=== PATIENT | female | born 1995 | race Hispanic/Latino ===

== ENCOUNTER 2022-09-05 19:42 | Emergency (ER) | payer OTHER, SELFPAY ==
[2022-09-05] MEDS ORDERED: Acetaminophen 325 MG TAB ONE (20:33)
== END 2022-09-05 22:28 | disposition home or self-care (01) ==
LOC: CSHERS 19:42
DX: O9A.211 Injury, poisoning and certain other consequences of external causes complicating pregnancy, first trimester (principal); S00.03XA Contusion of scalp, initial encounter; Z3A.13 13 weeks gestation of pregnancy
CPT/HCPCS: 76815

== ENCOUNTER 2022-12-01 15:26 | Outpatient (CLI) | payer OTHER | END 2022-12-01 15:27 | disposition home or self-care (01) | LOC: CSHULT 15:26 | PROVIDERS: ATTEND Family Medicine | DX: O44.42 Low lying placenta NOS or without hemorrhage, second trimester (principal); Z3A.27 27 weeks gestation of pregnancy | CPT/HCPCS: 76805 ==

== ENCOUNTER 2023-03-07 11:41 | Inpatient (IN) | payer OTHER ==
[~2023-03-07 11:41] MED LIST: Bupivacaine 0.25% HCL 30 ML VIAL ONE
[2023-03-07] MEDS ORDERED: Misoprostol 100 MCG TAB ONE (12:41)
[2023-03-07] MEDS ORDERED: hydrALAZINE 20 MG/ML VIAL SLOW IVP PRN (12:51)
[2023-03-07] MEDS ORDERED: fentaNYL 50 mcg/mL 1 mL Vial SLOW IVP PRN (12:51)
[2023-03-07] MEDS ORDERED: Diphenoxylate HCl/Atropine Tablet PO PRN (12:51)
[2023-03-07] MEDS ORDERED: Acetaminophen 500 MG TAB PO PRN (12:51)
[2023-03-07] MEDS ORDERED: Misoprostol 200 MCG TAB PR PRN (12:51)
[2023-03-07] MEDS ORDERED: Lidocaine 1% (PF) 30 ML VIAL SC PRN (12:51)
[2023-03-07] MEDS ORDERED: HYDROcodone/Acetaminophen 5/325 mg Tablet PO PRN (12:51)
[2023-03-07] MEDS ORDERED: Ibuprofen 800 MG TAB PO PRN (12:51)
[2023-03-07] MEDS ORDERED: Ondansetron PF 4 MG/2 ML Vial IVP PRN (12:51)
[2023-03-07] MEDS ORDERED: Carboprost 250 MCG/ML AMP IM PRN (12:51)
[2023-03-07] MEDS ORDERED: Tranexamic Acid 1,000 MG/10 ML VIAL IVP PRN (12:51)
[2023-03-07] MEDS ORDERED: Methylergonovine 0.2 MG/ML VIAL IM PRN (12:51)
[2023-03-07] MEDS ORDERED: Promethazine HCl 25 MG/ML VIAL IM PRN (12:51)
[2023-03-07] MEDS ORDERED: NS w/ Oxytocin 30 units 500 ML IV SCH ×3 (13:00)
[2023-03-07 13:06] LABS: Hemoglobin 11.2 g/dL (12.0-15.5); Mean Corpuscular HGB CONC 35.3 g/dL (32.0-36.0); Mean Corpuscular Hemoglobin 28.4 pg (27.0-33.0); Mean Corpuscular Volume 80.3 fl (81.6-98.3); Mean Platelet Volume 10.5 fl (7.4-10.4); Platelet Count 239 10x3/uL (150-450); RBC Distribution Width 13.4 % (11.5-14.5); Red Blood Cell (RBC) Count 3.95 10x6/uL (3.90-5.03); White Blood Cell (WBC) Count 7.4 10x3/uL (3.5-10.5)
[2023-03-07 13:30] LABS: ALT (SGPT) 12 U/L (8-55); AST (SGOT) 13 U/L (5-34); Albumin 3.3 g/dL (3.5-5.0); Alkaline Phosphatase 193 U/L (40-110); Anion Gap 14 mmol/L (10-20); BUN (Urea Nitrogen) 10 mg/dL (7.0-18.7); Bilirubin, Total 0.3 mg/dL (0.2-1.2); Calc. Creatinine Clearance 0 mL/min (70-130); Calcium 8.5 mg/dL (7.8-10.44); Carbon Dioxide 18 mmol/L (22-29); Chloride 104 mmol/L (98-107); Estimated GFR 122; Globulin 2.8 g/dL (2.4-3.5); Glucose 99 mg/dL (70-105); Potassium 3.9 mmol/L (3.5-5.1); Protein, Total 6.1 g/dL (6.0-8.3); Sodium 132 mmol/L (136-145)
[2023-03-07 13:50] LABS: Syphilis Antibody Nonreactive (Nonreactive); Syphilis Antibody Index 0.05 S/CO (<1.00 Non-Reactive)
[2023-03-07 13:51] LABS: HBSAg Index 0.17 S/CO (0-0.99); Hep B Surf Ag - L&D Non-Reactive S/CO (NonReactive)
[2023-03-08] MEDS ORDERED: Misoprostol 100 MCG TAB ONE (04:26)
[2023-03-08] MEDS: Lactated Ringer's 1,000 ML IV SCH ×2 (08:37→08:50)
[2023-03-08] MEDS: Misoprostol 100 MCG TAB PO SCH (08:49)
[2023-03-08 09:17] VITALS: BMI 38.4
[2023-03-08] MEDS ORDERED: fentaNYL/Ropivacaine Epidural 100 ML ONE (11:38)
[2023-03-08] MEDS ORDERED: Lactated Ringer's 500 ML IV PRN (12:18)
[2023-03-08] MEDS ORDERED: Promethazine HCl 25 MG/ML VIAL IM PRN ×2 (12:18→23:39)
[2023-03-08] MEDS ORDERED: ePHEDrine Sulfate 50 MG/10 ML VIAL SLOW IVP PRN (12:18)
[2023-03-08] MEDS ORDERED: Acetaminophen 325 MG TAB PO PRN (12:18)
[2023-03-08] MEDS ORDERED: diphenhydrAMINE 50 MG/ML VIAL IVP PRN (12:18)
[2023-03-08] MEDS ORDERED: Naloxone HCl 0.4 mg/ml Vial IVP PRN ×2 (12:18)
[2023-03-08] MEDS ORDERED: Moisturizing Cream (Eucerin) 113 GM JAR TOP PRN (12:18)
[2023-03-08] MEDS ORDERED: Ondansetron PF 4 MG/2 ML Vial IVP PRN ×2 (12:18→23:39)
[2023-03-08] MEDS ORDERED: fentaNYL 2 mcg/Ropivacaine 0.2% Epidural 100 ML CADD EPIDURAL SCH (12:30)
[2023-03-08] MEDS ORDERED: Communication Order-Pharmacy FS SCH (12:30)
[2023-03-08] MEDS ORDERED: Misoprostol 200 MCG TAB ONE (16:24)
[2023-03-08] MEDS ORDERED: Methylergonovine 0.2 MG/ML VIAL ONE (16:24)
[2023-03-08] MEDS ORDERED: Carboprost 250 MCG/ML AMP ONE (16:24)
[2023-03-08] MEDS ORDERED: Famotidine/PF 20 mg/2ml Vial ONE (17:59)
[2023-03-08] MEDS ORDERED: Calcium Carbonate 500 MG ChewTAB PO SCH (18:45)
[2023-03-08] MEDS ORDERED: Lanolin Ointment 7 GM TUBE TOP PRN (23:39)
[2023-03-08] MEDS ORDERED: Bisacodyl 10 MG SUPP PR PRN (23:39)
[2023-03-08] MEDS ORDERED: HYDROcodone/Acetaminophen 5/325 mg Tablet PO PRN ×2 (23:39)
[2023-03-08] MEDS ORDERED: Milk Of Magnesia 30 ML UDCUP PO PRN (23:39)
[2023-03-08] MEDS ORDERED: Boostrix 0.5 ML (Tdap) VIAL (>/=7 yrs of age) IM ONE (23:39)
[2023-03-08] MEDS ORDERED: hydrALAZINE 20 MG/ML VIAL SLOW IVP PRN (23:39)
[2023-03-08] MEDS ORDERED: diphenhydrAMINE 25 MG CAP PO PRN (23:39)
[2023-03-08] MEDS ORDERED: Benzocaine-Menthol 82.5 ML CAN TOP PRN (23:39)
[2023-03-08] MEDS ORDERED: Ibuprofen 800 MG TAB PO SCH (23:45)
[2023-03-09] MEDS: Ibuprofen 800 MG TAB PO SCH ×3 (05:26→21:33)
[2023-03-09] MEDS: Ferrous Sulfate 325 MG TAB PO SCH ×2 (08:36→17:05)
[2023-03-09] MEDS: Prenatal Vitamin 1 TAB PO SCH (08:36)
[2023-03-09] MEDS: Docusate 100 MG CAP PO SCH ×2 (08:36→21:33)
[2023-03-09] MEDS: Milk Of Magnesia 30 ML UDCUP PO SCH (21:11)
[2023-03-10] MEDS: Ibuprofen 800 MG TAB PO SCH ×2 (05:43→13:06)
[2023-03-10] MEDS: Docusate 100 MG CAP PO SCH (07:34)
[2023-03-10] MEDS: Prenatal Vitamin 1 TAB PO SCH (07:34)
[2023-03-10 08:09] VITALS: BP 133/83; TEMP 97.9
[2023-03-10] MEDS: Milk Of Magnesia 30 ML UDCUP PO SCH (08:30)
[2023-03-10] MEDS: Ferrous Sulfate 325 MG TAB PO SCH (10:42)
== END 2023-03-10 15:50 | disposition home or self-care (01) | DRG 768 ==
LOC: CSHLD 11:41 → CSHPP 03-08 23:20
PROVIDERS: ADMIT Family Medicine; ATTEND Family Medicine
PROC: 10D07Z6 Extraction of Products of Conception, Vacuum, Via Natural or Artificial Opening (ICD-10-PCS; principal; 2023-03-08)
PROC: 0DQR0ZZ Repair Anal Sphincter, Open Approach (ICD-10-PCS; 2023-03-08)
PROC: 10907ZC Drainage of Amniotic Fluid, Therapeutic from Products of Conception, Via Natural or Artificial Opening (ICD-10-PCS; 2023-03-08)
PROC: 3E0P7VZ Introduction of Hormone into Female Reproductive, Via Natural or Artificial Opening (ICD-10-PCS; 2023-03-08)
PROC: 10H07YZ Insertion of Other Device into Products of Conception, Via Natural or Artificial Opening (ICD-10-PCS; 2023-03-08)
DX: O48.0 Post-term pregnancy (principal); Z37.0 Single live birth; O70.20 Third degree perineal laceration during delivery, unspecified; Z3A.40 40 weeks gestation of pregnancy; O13.4 Gestational [pregnancy-induced] hypertension without significant proteinuria, complicating childbirth; Z79.899 Other long term (current) drug therapy; Z88.2 Allergy status to sulfonamides; Z88.8 Allergy status to other drugs, medicaments and biological substances; O62.1 Secondary uterine inertia; O75.81 Maternal exhaustion complicating labor and delivery
CPT/HCPCS: 51702; 80053; 85027; 86780; 86850; 86900; 86901; 87340; J2405; J2590; J7120; S0020; S0028